=== PATIENT | male | born 1950 | race Caucasian/White ===

== ENCOUNTER → 2018-02-13 08:35 | Outpatient (CLI) | payer OTHER, SELFPAY ==
--- NOTE | 2018-02-13 08:39 | CT_ITS ---
STUDY: CT MAXILLOFACIAL SINUSES REASON FOR EXAM: Male, 67 years old. Sinusitis x1 year with sinu plasty in Aug 2017. RADIATION DOSAGE (If Supplied By Facility): CTDIvol = ( 33.06 ) mGy, DLP = ( 793.57 ) mGycm TECHNIQUE: The patient was scanned in a multi detector CT scanner. High resolution axial imaging was performed without the administration of intravenous contrast material. Sagittal and coronal images were reconstructed. Individualized dose optimization techniques were used for this CT. COMPARISON: None. FINDINGS: FRONTAL SINUSES: Moderate mucosal thickening in the right frontal sinus and mild mucosal thickening in the left frontal sinus. ETHMOIDAL SINUSES: Pronounced and diffuse mucosal thickening of the ethmoid sinuses. MAXILLARY SINUSES: Near complete opacification of the left maxillary sinus. Mild mucosal thickening in the contracted right maxillary sinus. SPHENOIDAL SINUSES: Mild mucosal thickening in the anterior wall and left lateral wall of the sphenoid sinus. Narrow and obstructed ostiomeatal units by mucosal thickening. Normal bilateral middle turbinates. Normal bilateral inferior turbinates. Short left horizontal nasal septal spur. Fracture lines along the nasal septum are presumably from previous attempted septoplasty. Narrow but patent nasal airways. The visualized osseous structures are normal. The visualized bilateral orbital contents are normal. Few calcifications in both ICA siphons. CT/Sinus/Facial Bone IMPRESSION: 1. Pansinusitis, pronounced in the ethmoid sinuses and maxillary sinuses. The right side is contracted from chronic sinusitis. 2. Narrow and obstructed bilateral osteomeatal units.. 3. Short left horizontal nasal septal spur. 4. Fracture lines in the nasal septum are presumably from previous septoplasty. Electronically Signed: Jose Krueger MD at 15:55 EDT , Service support ,
== END ==
PROVIDERS: Family Provider Family Medicine; PCP Family Medicine; Visit Provider Otolaryngology
DX: J32.9 Chronic sinusitis, unspecified (principal)
CPT/HCPCS: 70486

== ENCOUNTER 2018-03-23 05:50 | Day surgery (SDC) | payer OTHER, SELFPAY ==
[2018-03-12 11:32] VITALS: BP 139/71; PULSE 64; RESP 18; TEMP 36.5; O2SAT 95; BMI 28.0
[2018-03-12 13:09] LABS: Absolute Lymphocyte Count 1.64 X10^3/ul (0.83-4.51); Absolute Neutrophil Count 3.6 X10^3/uL (2.0-7.7); Basophil% 1.6 % (0-1); Eosinophil# 0.44 X10^3/uL; Eosinophils% 6.9 % (0-5); Hematocrit 41.6 % (40-54); Hemoglobin 13.5 g/dl (13.0-16.5); Lymphocyte # 1.64 X10^3/ul (4.0); Lymphocyte % 25.8 % (19-41); Mean Corp Hgb Conc 32.5 g/gl (32-36); Mean Corpuscular Hgb 30.5 pg (27.0-32.0); Mean Corpuscular Volume 94.1 fL (80-94); Mean Platelet Vol. 10.2 fl (6.2-12.0); Monocyte# 0.55 X10^3/uL; Monocyte% 8.7 % (0-10); Neutrophil # 3.62 X10^3/uL (2.7-7.7); POSITIVE COUNT NO; POSITIVE DIFFERENTIAL NO; POSITIVE MORPHOLOGY NO; Platelet Count 200 K/mm3 (150-450); RBC Distribution Width CV 13.2 % (11.6-14.6); RBC Distribution Width SD 45.6 fl (35.1-43.9); Red Blood Count 4.42 M/mm3 (4.6-6.2); White Blood Count 6.4 K/mm3 (4.4-11.0)
[2018-03-12 13:12] LABS: Prothrombin Time (Protime)PT. 13.6 SECONDS (11.7-14.9)
[2018-03-12 13:13] LABS: Partial Thromboplast Time 27.4 Seconds (24.1-36.2)
[2018-03-12 13:42] LABS: Hemoglobin A1c 6.7 % (4.2-6.3)
[2018-03-12 14:03] LABS: AST(SGOT) 20 U/L (15-37); Alanine Aminotransfer ALT/SGPT 33 U/L (16-61); Albumin, Serum 3.7 g/dL (3.2-5.0); Alkaline Phosphatase 48 U/L (45-117); Anion Gap 6 (5-15); BUN 25 mg/dL (7-18); BUN/Creat Ratio 16.2 RATIO (10-20); Bilirubin, Direct 0.16 mg/dL (0.00-0.30); Calcium,Total 8.7 mg/dL (8.5-10.1); Chloride 107 mmol/L (98-107); Creatinine, Serum 1.54 mg/dL (0.70-1.30); EST Glomerular Filtration Rate 48 mL/min (>60); Est Glom Filt Rate - Afr Amer 58 mL/min (>60); Estimated Creatinine Clearance 51.79 ml/min; Globulin 3.9 g/dL (2.2-4.2); Glucose 169 mg/dL (74-106); Potassium 4.1 mmol/L (3.5-5.1); Protein, Total 7.6 g/dL (6.4-8.2); Sodium Level 141 mmol/L (136-145)
[2018-03-23] VITALS (7 sets, daily range): BP systolic 134–160; BP diastolic 78–89; PULSE 46–72; RESP 14–18; TEMP 35.8–36.2; O2SAT 87–98; BMI 28.0
[2018-03-23 06:46] LABS: Bedside Glucose 75 mg/dL (70-110)
--- NOTE | 2018-03-23 07:30 | ETH_PTH ---
PATIENT: ALEIDA [place]ON [place] [facility] [place][id number] AGE/SX: 67/M ROOM: RE03/23/[address]: Dr. Jese Can MD : 1950 BED: DIS: 03/23/2018 SPEC #: [id number] RECD: 03/23/18 13:47 STATUS: DENISSE RERoberto Carlos #: [id number] ERIC: 03/23/18 07:[address]: Jese Can DEPT: SURGICAL PATHOLOGY RECD BY: Candido Pereira ENTERED: 03/23/18 13:48 SP TYPE: ETH TISS OTHR DR: Dr. Roscoe Zheng DO Tissues: A - Ethmoid sinus, NOS B - Ethmoid sinus, NOS Procedures: Decalcification bone/plaque Surgery Specimen Level III HEADER OPERATION: Bilateral myringotomy with tubes, septoplasty, functional endoscopic sinus surgery PRE-OP DIAGNOSIS: Chronic serous otitis media, chronic pansinusitis TISSUE SUBMITTED: A ? Right sinus contents, B ? Left sinus contents MICROSCOPIC DIAGNOSIS A. Right sinus contents, excision: Consistent with chronic sinusitis. Fragments of bone with no significant pathologic change. B. Left sinus contents, excision: Consistent with chronic sinusitis. Fragments of bone with no significant pathologic change. AM:joni 03/26/18 MICROSCOPIC DESCRIPTION Slides are reviewed. GROSS DESCRIPTION A - Received in fixative is one container labeled with the patient's name and designated right sinus contents. The specimen consists of multiple irregular fragments of pink-trotter soft tissue with adherent fragments of bone measuring 5 x 5 x 1.2 cm. Emergency Veterinary Assistant portions are submitted in one cassette after decalcification. B - Received in fixative is one container labeled with the patient's name and designated left sinus contents. The specimen consists of multiple irregular fragments of pink-trotter soft tissue with adherent fragments of bone measuring 6 x 6 x 1.5 cm. Emergency Veterinary Assistant portions are submitted in one cassette after decalcification. / AM:joni 03/23/18 TC:3 CPT: 48235 x2, 71829 x2
[2018-03-23] MEDS: Ciprofloxacin 0.3% 2.5ml Bottle 1 DRP (07:43)
[2018-03-23] MEDS: Oxymetazoline 0.05% 1 SPRAY SPRAY.BTL 15 SPRAY ×2 (08:00→10:12)
[2018-03-23] MEDS: Mupirocin Ointment 22gm Tube 1 APPLIC (09:40)
[2018-03-23 11:25] LABS: Bedside Glucose 170 mg/dL (70-110)
--- NOTE | 2018-03-23 11:50 | PCM.DC ---
You will use the following diet at home:: No restrictions Your food should be the consistency of: Regular Discharge Activity: May not drive while taking narcotic pain medications. May shower in (days): 0 Call your doctor if your incision/area has: Sudden Increased Bleeding Additional Dressing/Incision Instructions:: saline irrigation to both nostrils 5 times / day. sleep with head of bed elevated. ear drops ( has them) - 3 drops each ear twice daily for 3 days. Allergies/Adverse Reactions: Allergies iodine Allergy (Mild, Verified 03/23/18 06:15) sulfacetamide Allergy (Mild, Verified 03/23/18 06:15) Medications to take at Discharge amlodipine 10 mg tablet 10 mg PO QDAY 07/11/17 atenolol 100 mg tablet 50 mg PO DAILY 07/11/17 atorvastatin 80 mg tablet 80 mg PO QDAY 07/11/17 clopidogrel 75 mg tablet 75 mg PO QDAY 07/11/17 fluticasone 50 mcg/actuation nasal spray,suspension 50 mcg INTRANASAL QDAY PRN 07/11/17 gabapentin 400 mg capsule 400 mg PO TID 07/11/17 nitroglycerin 0.4 mg sublingual tablet 0.4 mg SUBLINGUAL Q5-15M PRN 07/11/17 omeprazole magnesium 20 mg tablet,delayed release 40 mg PO BID 07/11/17 ramipril 10 mg capsule 10 mg PO QDAY 07/11/17 Amiodarone HCl [Amiodarone HCl] 100 mg PO DAILY 03/12/18 Aspirin [Aspirin, Baby] 81 mg PO DAILY@0800 03/12/18 Fluticasone/Umeclidin/Vilanter [Trelegy Ellipta 100-62.5-25] 1 puff IH DAILY 03/12/18 Glimepiride [Amaryl] 4 mg PO DAILY 03/12/18 Clarithromycin [Biaxin] 500 mg PO Q12H 10 Days #14 tab 03/23/18 Hydrocodone/Acetaminophen [Wittman 5-325 Tablet] 1 ea PO Q6H 6 Days #20 tab 03/23/18 levoFLOXacin tablet [Levaquin tablet] 250 mg PO DAILY 03/23/18 The following prescriptions were given: Clarithromycin [Biaxin] 500 mg PO Q12H 10 Days #14 tab Hydrocodone/Acetaminophen [Wittman 5-325 Tablet] 1 ea PO Q6H 6 Days #20 tab Primary Care Physician: Roscoe Zheng [Primary Care Provider] - Test Results: Test results from this visit will be discussed in further detail at your follow-up appointment, if applicable.
--- NOTE | 2018-03-24 15:46 | PCM.OPRPT ---
Problem List (1) Chronic pansinusitis Status: Chronic (2) Nasal septal deviation Status: Chronic (3) Hypertrophy of nasal turbinates Status: Chronic (4) Chronic serous otitis media of both ears Status: Chronic Report of Operation Date of Procedure: 03/23/18 Pre-Operative Diagnosis: 1. chronic pansinusitis. 2. chronic serous otitis, right and left. 3. nasal septal deviation. 4. inferior turbinate hypertrophy, right and left Post-Operative Diagnosis: 1. chronic pansinusitis. 2. chronic serous otitis, right and left. 3. nasal septal deviation. 4. inferior turbinate hypertrophy, right and left Surgery/Procedure Performed:: 1. septoplasty. 2. submucous reduction inferior turbinates. 3. placement of pressure equalization tubes, right and left ear. 4. endoscopic maxillary antrostomy with removal of contents, right and left. 5. endoscopic total ethmoidectomy, right and left. 6. frontal sinus exploration, right and left. 7. endoscopic sphenoidotomy, right and left Type of Anesthesia:: General Specimen's removed: right and left sinus contents Description of Procedure: on the day of the procedure, after appropriate informed consent was obtained, the patient was brought to the operating room and placed in supine position on the operating table. he was placed under general endotracheal anesthesia by the anesthesiologist. the endotracheal tube was secured, the eyes were taped. the left ear was examined with the microscope. a speculum was placed. the tympanic membrane was viewed in its entirety and found to be intact. a radial myringotomy was made posteriorly and a T tube was placed. floxin otic drops were instilled. the right ear was examined with the microscope. a speculum was placed. the tympanic membrane was viewed in its entirety and found to be intact. a radial myringotomy was made posteriorly and a T tube was placed. floxin otic drops were instilled. the bilateral nasal cavities were decongested with oxymetazoline soaked pledgets. the nasal septum, inferior turbinates and superior attachment of the middle turbinates were injected with lidocaine/epinephrine. a marginal incision was made on the patient's left side. submucoperichondrial planes were developed on the right and left using a alexander elevator. these were taken posteriorly to the bony cartilaginous junction and inferiorly to the maxillary crest. the septum was severely deviated to the left with a large left septal spur and the septum was off of the crest anteriorly to the left. a 1.5 cm L-strut was preserved and the remainder of the cartilaginous septum was removed with a D knife. the spur was removed with a alirio richardton, along with deviated portions of the perpendicular plate of the ethmoid and the vomer. the anterior septum was disarticulated from its inferior insertion and trimmed. this was re-anchored to the maxillary crest periosteum using a 4-0 PDS suture. numerous quilting sutures were used to close the septum and marginal incision with 4-0 chromic. the head of the left inferior turbinate was incised with a #15 blade. this was dissected submucosally with a alexander, reduced using suction electrocautery and outfractured using a boies elevator. the head of the right inferior turbinate was incised with a #15 blade. this was dissected submucosally with a alexander, reduced using suction electrocautery and outfractured using a boies elevator. a zero degree endoscope was used to evaluate the left nose. there was pus coming from the middle meatus. an uncinectomy and antrostomy was performed using a alexander elevator and a ely. copious amounts of fungus were removed from the sinus and the antrostomy was widened with a back-biter. contents were removed. the ethmoid bulla was entered bluntly with a suction. a total ethmoidectomy was performed using a curette and a blakesley. this was taken superiorly to the skull base and laterally to the lamina. a stankewicz maneuver was completed and no defect was noted. the natural sphenoid os was widened with the microdebrider and contents were removed. the frontal recess was probed, widened and contents were removed. pledgets were placed. a zero degree endoscope was used to evaluate the right nose. there was pus coming from the middle meatus. an uncinectomy and antrostomy was performed using a alexander elevator and a ely. copious amounts of fungus were removed from the sinus and the antrostomy was widened with a back-biter. contents were removed. the ethmoid bulla was entered bluntly with a suction. a total ethmoidectomy was performed using a curette and a blakesley. this was taken superiorly to the skull base and laterally to the lamina. a stankewicz maneuver was completed and no defect was noted. the natural sphenoid os was widened with the microdebrider and contents were removed. the frontal recess was probed, widened and contents were removed. pledgets were placed. samano splints were placed and the patient was lightened from anesthesia. the patient had some moderate nasal bleeding. he was put back under full anesthesia and the splints were removed. there was global inflammation and bleeding. areas of both sinonasal cavities were cauterized and the skull base and middle turbinate remnants were covered in surgicel. the splints were replaced. the area was reexamined with the endoscope and hemostasis was achieved. the patient was awoken from anesthesia and transferred to the PACU with no epistaxis in stable condition.
== END 2018-03-23 13:35 | disposition home or self-care (01) ==
LOC: SDC 05:51 → AC 05:55
PROVIDERS: Anesthesiology; Family Provider Family Medicine; PCP Family Medicine; Visit Provider Otolaryngology
PROC: (CPT 30140; 2018-03-23 07:00)
DX: J32.4 Chronic pansinusitis (principal); J34.2 Deviated nasal septum; H65.23 Chronic serous otitis media, bilateral; J34.3 Hypertrophy of nasal turbinates; E11.9 Type 2 diabetes mellitus without complications; E78.00 Pure hypercholesterolemia, unspecified; K21.9 Gastro-esophageal reflux disease without esophagitis; Z79.899 Other long term (current) drug therapy; Z79.82 Long term (current) use of aspirin; Z79.02 Long term (current) use of antithrombotics/antiplatelets; Z79.84 Long term (current) use of oral hypoglycemic drugs; I48.91 Unspecified atrial fibrillation; I25.2 Old myocardial infarction; I10 Essential (primary) hypertension; Z95.1 Presence of aortocoronary bypass graft; Z87.891 Personal history of nicotine dependence; J45.909 Unspecified asthma, uncomplicated
CPT/HCPCS: 30140; 30520; 31259; 31267; 69436; 36415; 80048; 80076; 82962; 83036; 85025; 85610; 85730; 87070; 87075; 87077; 87186; 87205; 88304; 88305; 88311; 93005; J7120; J2405

== ENCOUNTER → 2018-05-17 15:27 | Outpatient (CLI) | payer OTHER, SELFPAY | PROVIDERS: Family Provider Family Medicine; PCP Family Medicine; Referring Provider Otolaryngology; Visit Provider Otolaryngology | DX: J32.9 Chronic sinusitis, unspecified (principal) | CPT/HCPCS: 87070; 87077; 87186; 87205 ==

== ENCOUNTER → 2018-09-20 15:15 | Outpatient (CLI) | payer OTHER, SELFPAY ==
[2018-03-23 06:20] VITALS: BMI 28.0
== END ==
PROVIDERS: Family Provider Family Medicine; PCP Family Medicine; Referring Provider Otolaryngology; Visit Provider Otolaryngology
DX: J32.9 Chronic sinusitis, unspecified (principal)
CPT/HCPCS: 87070; 87077; 87186; 87205

== ENCOUNTER → 2018-11-11 15:53 | Outpatient (CLI) | payer OTHER, SELFPAY ==
[2018-03-23 06:20] VITALS: BMI 28.0
== END ==
PROVIDERS: Family Provider Family Medicine; PCP Family Medicine; Referring Provider Otolaryngology; Visit Provider Otolaryngology
DX: J32.9 Chronic sinusitis, unspecified (principal)
CPT/HCPCS: 87070; 87077; 87186; 87205